=== PATIENT | female | born 1995 | race Caucasian/White ===

== ENCOUNTER 2017-09-14 10:28 | Observation (INO) ==
--- NOTE | 2017-09-14 11:56 | Emergency Department Note ---
Disposition Clinical Impression: Gait disturbance, Speech abnormality, Obesity, Headache, Delayed emotional development Disposition: Admitted As Inpatient General Adult HPI - General Chief complaint: ED General Medical Stated complaint: slurred speech/dizziness Time Seen by Provider: 09/14/17 11:37 Source: patient Limitations: no limitations - History of Present Illness HPI Narrative: 22-year-old female with a history of late emotional development and psychiatric illness reports emergency department with her mother there is concern for a change in speech pattern. Patient has a history of bipolar disorder and has been very aggressive regarding her mood. The mother reports that the change in speech pattern occurred with the change in mood. He mother also reports that the patient is unable to walk normally. She fell down once but did not get injured. There is no history of recent seizure. The patient has been feeling ill for a few days and felt very weak. There is no history of unilateral arm weakness or numbness or varsha slurred speech, there is no history of facial drooping. The patient complains of a headache. There is no history of rash or sore throat or runny nose. There is no history of acute chest pain shortness of breath or cough unless associated with feeling anxious, the patient occasionally develops chest pain. There is no history of active chest pain. There is no history of trauma. No vomiting diarrhea or acute abdominal pain. There is no history of back pain or syncope. There is no history of fever. No varsha confusion but the mother reports she cannot understand the patient's speech as well as usual. The patient had a recent URI which has resolved. The patient has not had anything to eat since yesterday and describes general weakness. No leg swelling. No palpitations reported. There is no history of drug overdose or intentional ingestion of toxic substances or self-induced injury. Pain Scale: 3 - Related Data Home Medications Medication Instructions Recorded Confirmed ALPRAZolam [Xanax 1 MG Tablet] 1 mg PO TID 09/14/17 09/14/17 Buspirone HCl [Buspar] 15 mg PO TID 09/14/17 09/14/17 Ferrous Sulfate [Iron] 325 mg PO DAILY 09/14/17 09/14/17 Fluticasone Propionate Nasal 2 spr NS DAILY 09/14/17 09/14/17 [Flonase] Norethindrone-Ethinyl Estrad 1 tab PO DAILY 09/14/17 09/14/17 [Nortrel 7-7-7-28 Tablet] Omeprazole [PriLOSEC] 20 mg PO BIDAC 09/14/17 09/14/17 Topiramate [Topamax] 50 mg PO DAILY 09/14/17 09/14/17 lamoTRIgine [Lamictal] 100 mg PO DAILY 09/14/17 09/14/17 Allergies Allergy/AdvReac Type Severity Reaction Status Date / Time No Known Allergies Allergy Verified 09/14/17 14:33 All systems ED: reviewed and negative except as stated. Past Medical History - Past Medical History Medical history: Reports: no medical history, GERD Psychiatric history: Reports: anxiety, ADHD, bipolar, depression - Social History Smoking Status: Never smoker Smokeless Tobacco Status: No Alcohol use: Reports: none Drug use: Reports: none Physical Exam - General Limitations: no limitations, other (The patient is able to sit up and communicate without difficulty, her speech is slow but fully intelligible on my assessment.) General appearance: alert, in no apparent distress, obese - Head Head exam: atraumatic, normocephalic, normal inspection - Eye Eye exam: Present: normal appearance, PERRL, EOMI. Absent: scleral icterus, conjunctival injection, miosis, mydriasis - ENT ENT exam: normal exam, normal oropharynx, mucous membranes moist, TM's normal bilaterally, normal external ear exam - Neck Neck exam: Present: normal inspection, full ROM, trachea midline. Absent: meningismus - Chest Chest inspection: Present: symmetric chest wall rise. Absent: tenderness - Respiratory Respiratory exam: Present: normal lung sounds bilaterally. Absent: respiratory distress, prolonged expiratory phase - Cardiovascular Cardiovascular exam: Present: regular rate, normal rhythm, normal heart sounds - Abdominal Exam Abdominal exam: Present: soft, Non-Tender, normal bowel sounds. Absent: tenderness, distention, guarding, rebound, rigidity - Extremities Exam Extremities exam: Present: normal inspection, full ROM, normal capillary refill. Absent: tenderness, pedal edema, joint swelling, calf tenderness - Expanded Lower Extremity Exam Lower leg exam: Absent: Homans' sign Neurovascular/Tendon exam: Present: normal capillary refill. Absent: motor deficit, sensory deficit, tendon deficit, extremity cold to touch, pallor - Back Exam Back exam: Present: normal inspection, full ROM, CVA tenderness (R). Absent: tenderness, CVA tenderness (L), vertebral tenderness - Neurological Exam Neurological exam: Present: alert, oriented X3, CN II-XII intact. Absent: motor sensory deficit - Psychiatric Psychiatric exam: Present: normal affect, normal mood - Skin Skin exam: Present: warm, dry, intact, normal color. Absent: rash, cyanosis, diaphoresis, erythema, pallor, mottled Course Vital Signs Temperature 97.7 F 09/14/17 10:29 Pulse Rate 98 09/14/17 10:29 Respiratory Rate 18 09/14/17 10:29 Blood Pressure 123/84 09/14/17 10:29 O2 Sat by Pulse Oximetry 99 09/14/17 10:29 Temperature 97.7 F 09/14/17 10:29 Pulse Rate 88 09/14/17 14:27 Respiratory Rate 18 09/14/17 14:27 Blood Pressure 109/76 09/14/17 14:27 O2 Sat by Pulse Oximetry 98 09/14/17 14:27 Oxygen Delivery Oxygen Delivery Room Air Medical Decision Making - MDM Narrative Medical decision making narrative: A medical records auditor and I tried to have the patient ambulate in the ED, she seemed to lean side to side and could not hold her balance well. The patient's mother reports this is highly abnormal for her. On exam the patient's neck is not rigid, she does describe a headache however there is no mass of trauma. There is no rash or fever, the patient's white count is normal. CRP minimally elevated. The patient's mother reports her speech pattern is improving but her gait is not. Based on the patient's apparent change in ambulation and speech pattern, as well as concerns for headache, I consult with the neurologist Dr. Sandoval, we both felt it would be appropriate to admit the patient the hospital for observation and further testing including potential MRI and lumbar puncture. The patient has a younger female with apparent neurologic disturbances, multiple sclerosis is in the differential, meningitis is also a consideration. The mother is highly favor admission, she does not feel the patient is safe to go home based on her change in gait and speech pattern. The patient does have psychiatric comorbidities, but the mother is very aware of her usual psychiatric disturbance reports the neurologic changes seem to be new. I consulted the hospitalist on-call who has accepted the patient to their care. A diagnostic LP has been ordered, Staff has been noticed and are available for this procedure. - Lab Data Lab results reviewed: Yes I reviewed the patient's lab results. Result diagrams: 09/14/17 12:13 09/14/17 12:13 Lab Results 09/14/17 09/14/17 09/14/17 Range/Units 12:13 12:13 12:13 WBC 8.2 (4.3-11.1) K/mcL RBC 4.46 (3.82-4.97) M/mcL Hgb 12.1 (11.5-15.4) g/dL Hct 38.1 (35.3-44.9) % MCV 85.4 (83.0-100.0) fL MCH 27.1 L (28.0-33.3) pg MCHC 31.8 (31.6-35.5) g/dL RDW 13.5 (11.5-14.5) % Plt Count 368 (140-400) K/mcL MPV 9.9 (9.4-12.4) fL Immature Gran % 0.4 (0-4) % Seg Neutrophils % 70.4 % Lymphocytes % 24.8 % Monocytes % 4.1 % Eosinophils % 0.2 % Basophils % 0.1 % Neutrophils # 5.8 (1.6-8.9) K/mcL Lymphocytes # 2.0 (0.6-4.6) K/mcL Monocytes # 0.3 (0.0-1.3) K/mcL Eosinophils # 0.0 (0.0-0.6) K/mcL Basophils # 0.0 (0.0-0.2) K/mcL Sodium (136-145) mEq/L Potassium (3.5-4.5) mEq/L Chloride (98-109) mEq/L Carbon Dioxide (19-29) mEq/L BUN (7-20) mg/dL Creatinine (0.57-1.11) mg/dL Est GFR ( Amer) (> 60) Est GFR (Non-Af Amer) (> 60) BUN/Creatinine Ratio (6-26) Glucose (70-99) mg/dL Calculated Osmolality (280-300) Lactic Acid 1.1 (0.5-2.2) mmol/L Calcium (8.6-10.8) mg/dL Phosphorus (2.3-4.7) mg/dL Magnesium (1.7-2.2) mg/dL Total Bilirubin (0.2-1.2) mg/dL Direct Bilirubin (0.0-0.5) mg/dL Indirect Bilirubin (0.0-1.2) mg/dL AST (5-34) Units/L ALT (0-55) Units/L Alkaline Phosphatase (38-126) Units/L Troponin I 0.00 (0-0.03) ng/mL C-Reactive Protein (Less than 5) mg/L Serum Total Protein (6.0-8.3) g/dL Albumin (3.5-5.0) g/dL Globulin (2.4-3.5) g/dL Albumin/Globulin Ratio (1.1-2.2) Lipase (8-78) Units/L TSH (0.350-4.840) mcIU/mL Serum , Qual (Negative) Urine Color (Yellow) Urine Clarity (Clear) Urine pH (5.0-8.0) pH Units Ur Specific [place] (1.010-1.025) Urine Protein (Neg-Trace) mg/dL Urine Glucose (UA) (Normal) mg/dL Urine Ketones (Negative) mg/dL Urine Blood (Negative) Urine Nitrite (Negative) Urine Bilirubin (Negative) Urine Urobilinogen (Normal) mg/dL Ur Leukocyte Esterase (Negative) Ur Culture Indicated? (NO) Salicylates (15-30) mg/dL Urine Opiates Screen (Ipyphj=539) ng/mL Acetaminophen (10-30) mcg/mL Ur Barbiturates Screen (Nmtdyq=847) ng/mL Ur Phencyclidine Scrn (Cutoff=25) ng/mL Ur Amphetamines Screen (Aftjwc=5674) ng/mL U Benzodiazepines Scrn (Hxoxtv=908) ng/mL Urine Cocaine Screen (Cutoff= 300) ng/mL U Marijuana (THC) Screen (Cutoff = 50) ng/mL Ethyl Alcohol (0-10) mg/dL 09/14/17 09/14/17 09/14/17 Range/Units 12:13 12:13 12:35 WBC (4.3-11.1) K/mcL RBC (3.82-4.97) M/mcL Hgb (11.5-15.4) g/dL Hct (35.3-44.9) % MCV (83.0-100.0) fL MCH (28.0-33.3) pg MCHC (31.6-35.5) g/dL RDW (11.5-14.5) % Plt Count (140-400) K/mcL MPV (9.4-12.4) fL Immature Gran % (0-4) % Seg Neutrophils % % Lymphocytes % % Monocytes % % Eosinophils % % Basophils % % Neutrophils # (1.6-8.9) K/mcL Lymphocytes # (0.6-4.6) K/mcL Monocytes # (0.0-1.3) K/mcL Eosinophils # (0.0-0.6) K/mcL Basophils # (0.0-0.2) K/mcL Sodium 140 (136-145) mEq/L Potassium 3.8 (3.5-4.5) mEq/L Chloride 107 (98-109) mEq/L Carbon Dioxide 23 (19-29) mEq/L BUN 7 (7-20) mg/dL Creatinine 0.74 (0.57-1.11) mg/dL Est GFR ( Amer) > 60 (> 60) Est GFR (Non-Af Amer) > 60 (> 60) BUN/Creatinine Ratio 9 (6-26) Glucose 99 (70-99) mg/dL Calculated Osmolality 288 (280-300) Lactic Acid (0.5-2.2) mmol/L Calcium 9.4 (8.6-10.8) mg/dL Phosphorus 3.3 (2.3-4.7) mg/dL Magnesium 2.5 H (1.7-2.2) mg/dL Total Bilirubin 0.3 (0.2-1.2) mg/dL Direct Bilirubin 0.2 (0.0-0.5) mg/dL Indirect Bilirubin 0.1 (0.0-1.2) mg/dL AST 14 (5-34) Units/L ALT 16 (0-55) Units/L Alkaline Phosphatase 88 (38-126) Units/L Troponin I (0-0.03) ng/mL C-Reactive Protein 25 H (Less than 5) mg/L Serum Total Protein 7.8 (6.0-8.3) g/dL Albumin 3.5 (3.5-5.0) g/dL Globulin 4.3 H (2.4-3.5) g/dL Albumin/Globulin Ratio 0.8 L (1.1-2.2) Lipase 24 (8-78) Units/L TSH 0.815 (0.350-4.840) mcIU/mL Serum , Qual Negative (Negative) Urine Color Yellow (Yellow) Urine Clarity Clear (Clear) Urine pH 6.0 (5.0-8.0) pH Units Ur Specific [place] 1.011 (1.010-1.025) Urine Protein Negative (Neg-Trace) mg/dL Urine Glucose (UA) Normal (Normal) mg/dL Urine Ketones Negative (Negative) mg/dL Urine Blood Negative (Negative) Urine Nitrite Negative (Negative) Urine Bilirubin Negative (Negative) Urine Urobilinogen Normal (Normal) mg/dL Ur Leukocyte Esterase Negative (Negative) Ur Culture Indicated? NO (NO) Salicylates < 5.0 L (15-30) mg/dL Urine Opiates Screen (Kdesbf=238) ng/mL Acetaminophen < 1.0 L (10-30) mcg/mL Ur Barbiturates Screen (Tbdfjt=519) ng/mL Ur Phencyclidine Scrn (Cutoff=25) ng/mL Ur Amphetamines Screen (Xrzuyx=7466) ng/mL U Benzodiazepines Scrn (Stqodq=840) ng/mL Urine Cocaine Screen (Cutoff= 300) ng/mL U Marijuana (THC) Screen (Cutoff = 50) ng/mL Ethyl Alcohol < 10 (0-10) mg/dL 09/14/17 Range/Units 12:35 WBC (4.3-11.1) K/mcL RBC (3.82-4.97) M/mcL Hgb (11.5-15.4) g/dL Hct (35.3-44.9) % MCV (83.0-100.0) fL MCH (28.0-33.3) pg MCHC (31.6-35.5) g/dL RDW (11.5-14.5) % Plt Count (140-400) K/mcL MPV (9.4-12.4) fL Immature Gran % (0-4) % Seg Neutrophils % % Lymphocytes % % Monocytes % % Eosinophils % % Basophils % % Neutrophils # (1.6-8.9) K/mcL Lymphocytes # (0.6-4.6) K/mcL Monocytes # (0.0-1.3) K/mcL Eosinophils # (0.0-0.6) K/mcL Basophils # (0.0-0.2) K/mcL Sodium (136-145) mEq/L Potassium (3.5-4.5) mEq/L Chloride (98-109) mEq/L Carbon Dioxide (19-29) mEq/L BUN (7-20) mg/dL Creatinine (0.57-1.11) mg/dL Est GFR ( Amer) (> 60) Est GFR (Non-Af Amer) (> 60) BUN/Creatinine Ratio (6-26) Glucose (70-99) mg/dL Calculated Osmolality (280-300) Lactic Acid (0.5-2.2) mmol/L Calcium (8.6-10.8) mg/dL Phosphorus (2.3-4.7) mg/dL Magnesium (1.7-2.2) mg/dL Total Bilirubin (0.2-1.2) mg/dL Direct Bilirubin (0.0-0.5) mg/dL Indirect Bilirubin (0.0-1.2) mg/dL AST (5-34) Units/L ALT (0-55) Units/L Alkaline Phosphatase (38-126) Units/L Troponin I (0-0.03) ng/mL C-Reactive Protein (Less than 5) mg/L Serum Total Protein (6.0-8.3) g/dL Albumin (3.5-5.0) g/dL Globulin (2.4-3.5) g/dL Albumin/Globulin Ratio (1.1-2.2) Lipase (8-78) Units/L TSH (0.350-4.840) mcIU/mL Serum , Qual (Negative) Urine Color (Yellow) Urine Clarity (Clear) Urine pH (5.0-8.0) pH Units Ur Specific [place] (1.010-1.025) Urine Protein (Neg-Trace) mg/dL Urine Glucose (UA) (Normal) mg/dL Urine Ketones (Negative) mg/dL Urine Blood (Negative) Urine Nitrite (Negative) Urine Bilirubin (Negative) Urine Urobilinogen (Normal) mg/dL Ur Leukocyte Esterase (Negative) Ur Culture Indicated? (NO) Salicylates (15-30) mg/dL Urine Opiates Screen Negative (Fjqxgn=856) ng/mL Acetaminophen (10-30) mcg/mL Ur Barbiturates Screen Negative (Iplkls=076) ng/mL Ur Phencyclidine Scrn Negative (Cutoff=25) ng/mL Ur Amphetamines Screen Negative (Xpjjfb=0896) ng/mL U Benzodiazepines Scrn Positive H (Raobvm=071) ng/mL Urine Cocaine Screen Negative (Cutoff= 300) ng/mL U Marijuana (THC) Screen Negative (Cutoff = 50) ng/mL Ethyl Alcohol (0-10) mg/dL - Radiology Data Radiology results reviewed: Yes I reviewed the patient's radiology results.
[2017-09-14 12:28] LABS: Basophils % 0.1 %; Eosinophils % 0.2 %; Hematocrit 38.1 % (35.3-44.9); Hemoglobin 12.1 g/dL (11.5-15.4); Immature Granulocytes % 0.4 % (0-4); Lymphocytes % 24.8 %; Mean Corpuscular HGB Conc 31.8 g/dL (31.6-35.5); Mean Corpuscular Hemoglobin 27.1 pg (28.0-33.3); Mean Corpuscular Volume 85.4 fL (83.0-100.0); Mean Platelet Volume 9.9 fL (9.4-12.4); Monocytes # 0.3 K/mcL (0.0-1.3); Monocytes % 4.1 %; Neutrophils # 5.8 K/mcL (1.6-8.9); Platelet Count 368 K/mcL (140-400); Red Blood Count 4.46 M/mcL (3.82-4.97); Red Cell Distribution Width 13.5 % (11.5-14.5); Segmented Neutrophils % 70.4 %
[2017-09-14 12:44] LABS: Alanine Aminotransferase 16 Units/L (0-55); Albumin 3.5 g/dL (3.5-5.0); Albumin/Globulin Ratio 0.8 (1.1-2.2); Alkaline Phosphatase 88 Units/L (38-126); Aspartate Amino Transferase 14 Units/L (5-34); BUN/Creatinine Ratio 9 (6-26); Bilirubin,Direct 0.2 mg/dL (0.0-0.5); Bilirubin,Indirect 0.1 mg/dL (0.0-1.2); Bilirubin,Total 0.3 mg/dL (0.2-1.2); Blood Urea Nitrogen 7 mg/dL (7-20); C-Reactive Protein 25 mg/L (Less than 5); Calcium 9.4 mg/dL (8.6-10.8); Carbon Dioxide 23 mEq/L (19-29); Chloride 107 mEq/L (98-109); Globulin 4.3 g/dL (2.4-3.5); Glucose 99 mg/dL (70-99); Lipase 24 Units/L (8-78); Magnesium 2.5 mg/dL (1.7-2.2); Osmolality,Calculated 288 (280-300); Phosphorous 3.3 mg/dL (2.3-4.7); Potassium 3.8 mEq/L (3.5-4.5); Sodium 140 mEq/L (136-145); Total Protein 7.8 g/dL (6.0-8.3); eGFR For African Americans > 60 (> 60); eGFR For Non-African Americans > 60 (> 60)
[2017-09-14 12:50] LABS: Amphetamine Screen,Urine Negative ng/mL (Cutoff=1000); Barbiturate Screen,Urine Negative ng/mL (Cutoff=200); Benzodiazepines Screen,Urine Positive ng/mL (Cutoff=200); Bilirubin,Urine Negative (Negative); Blood,Urine Negative (Negative); Cannabinoid Screen,Urine Negative ng/mL (Cutoff = 50); Clarity,Urine Clear (Clear); Cocaine Screen,Urine Negative ng/mL (Cutoff= 300); Color,Urine Yellow (Yellow); Glucose,Urine (UA) Normal (Normal); Ketones,Urine Negative (Negative); Leukocyte Esterase,Urine Negative (Negative); Nitrite,Urine Negative (Negative); Opiate Screen,Urine Negative ng/mL (Cutoff=300); Phencyclidine Screen,Urine Negative ng/mL (Cutoff=25); Protein,Urine Negative (Neg-Trace); Specific Gravity,Urine 1.011 (1.010-1.025); Urobilinogen,Urine Normal (Normal)
[2017-09-14 12:56] LABS: Acetaminophen < 1.0 mcg/mL (10-30); Ethanol < 10 mg/dL (0-10); Salicylate < 5.0 mg/dL (15-30)
[2017-09-14 13:16] LABS: Thyroid Stimulating Hormone 0.815 mcIU/mL (0.350-4.840)
[2017-09-14] MEDS ORDERED: Naloxone 0.4 MG/ML INJ IVP PRN (15:29)
--- NOTE | 2017-09-14 15:43 | Electrocardiograph Report ---
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
--- NOTE | 2017-09-14 16:15 | Internal Med History&Physical ---
<Dexter Lopez - Last Filed: 09/14/17 17:00> Date of Encounter: 09/14/17 Time of Encounter: 14:30 Assessment and Plan (1) Gait disturbance Current visit: Yes Status: Acute Pt. and mother report gait disturbance since Thursday. Pt. is able to ambulate but does so with shuffle. Mother states this is not pts. normal gait. CT of the head shows no acute intracranial abnormality. MRI of head/brain w/o contrast ordered. Lumbar puncture ordered to r/o viral meningitis. Pt. is currently afebrile and asymptomatic for infection. Will monitor pt. and f/u labs. PT/OT consults ordered to assess pts. ambulation strength and stability. Pt. is at moderate risk for further morbidity based on current hx and duration of sx. Observation. (2) Dizziness Current visit: Yes Status: Acute Pt. reports acute dizziness accompanied by headache and blurry vision. CT of the head shows no acute intracranial abnormality. MRI of the head/brain ordered w/o contrast. PT/OT consults ordered for ambulation safety assessment. Falls/ safety precautions. (3) Speech abnormality Current visit: Yes Status: Acute Pts. mother reports slurred speech in pt. since Thursday. Mother states that the pt. is developmentally delayed and that it is sometimes difficult to see changes but reports that this is not her normal speech. CT of the head today showed no acute intracranial abnormality. MRI of the head/brain w/o contrast ordered. Speech therapy consult ordered. Dysphagia screen ordered. NPO for now until dysphagia screen passed. Qualifiers: Speech disturbance type: slurred speech Qualified Code(s): R47.81 - Slurred speech (4) Headache Current visit: Yes Status: Acute Acute headache for three days. Pt. has familial hx of migraines (mother). Concern is for possible viral meningitis. Lumbar puncture ordered. Acetaminophen 650 mg Q6 for pain management. Qualifiers: Headache type: unspecified Headache chronicity pattern: acute headache Intractability: not intractable Qualified Code(s): R51 - Headache (5) Anxiety and depression Current visit: Yes Status: Chronic Hx of chronic anxiety, bipolar depression, and ADHD. Will continue patient's Xanax, Buspar, and Lamictal. (6) GERD (gastroesophageal reflux disease) Current visit: Yes Status: Chronic Hx of chronic GERD and peptic ulcer. Zofran IVP Q PRN and will continue pts. Prilosec. Qualifiers: Esophagitis presence: esophagitis presence not specified Qualified Code(s) : K21.9 - Gastro-esophageal reflux disease without esophagitis (7) Delayed emotional development Current visit: Yes Status: Chronic Hx of developmental delay. Mother reports mood swings and periods of argumentative behavior. Will continue patient's Xanax, Lamictal, and BuSpar. (8) DVT prophylaxis Current visit: Yes Status: Acute Bilateral SCDs on pts. LEs for DVT prophylaxis. Pharmacologic prophylaxis contraindicated due to lumbar puncture Internal Medicine - H&P: HPI Chief complaint: Slurred speech/Dizziness Admitted From: Emergency Dept Plans for Post Hospital Care: Home History of present illness: Ms. Velez is a 22 year old female with medical hx of GERD and peptic ulcer presents from the ED with chief complaint of slurred speech, abnormal gait, dizziness, headache, and nausea for the past 3 days. Patient also reports blurry vision for the past 3 days and states that she fell out of bed unintentionally on Thursday but denies hitting her head. Pts. mother states that the pt. is developmentally delayed and has fits of anger which she reports the patient had on Thursday evening while at the movies. Pts. mother states the pt. was in a very bad mood, began acting out, became argumentative and combative, and mouthy to her. She states this has happened before. Pt. currently takes, Xanax, Buspar, and Lamictal for anxiety, ADHD, and bipolar depression. Pt. states that it feels like the bed is moving when she is laying in it. Pt. denies recent illness, fever, chills, vomiting, unusual bleeding, abdominal pain , diarrhea, constipation, chest pain, SOB, palpitations, pre-syncope, or syncope. Past Med Surg Social Fam HX - Past Medical History Source: patient, old records reviewed, obtained from family Medical history: GERD Psychiatric history: anxiety, ADHD, bipolar, depression - Social History Smoking Status: Never smoker Smokeless Tobacco Status: No Alcohol use: none Drug use: none Current living situation: Home, With Family Activity Level: Independent ambulation Recent Out of Country Travel Within the Last 8 Weeks: No Exposure or Possible Exposure to Illness During Travel: No Internal Medicine - H&P: Meds ALPRAZolam [Xanax 1 MG Tablet] 1 mg PO TID 09/14/17 [History] Buspirone HCl [Buspar] 15 mg PO TID 09/14/17 [History] Ferrous Sulfate [Iron] 325 mg PO DAILY 09/14/17 [History] Fluticasone Propionate Nasal [Flonase] 2 spr NS DAILY 09/14/17 [History] Norethindrone-Ethinyl Estrad [Nortrel 7-7-7-28 Tablet] 1 tab PO DAILY 09/14/17 [ History] Omeprazole [PriLOSEC] 20 mg PO BIDAC 09/14/17 [History] Topiramate [Topamax] 50 mg PO DAILY 09/14/17 [History] lamoTRIgine [Lamictal] 100 mg PO DAILY 09/14/17 [History] 3 Allergy/AdvReac Type Severity Reaction Status Date / Time No Known Allergies Allergy Verified 09/14/17 14:33 All Systems PM: A 10-system review of systems was performed and is negative for pertinent findings except as documented above in the HPI. - Constitutional Constitutional: no chills, no fever(s), no night sweats - EENT Eyes: as per HPI, blurry vision, change in vision, no discharge, no pain, no photophobia Ears: no ear discharge, no ear pain, no tinnitus Nose, mouth and throat: no dysphagia, no nasal discharge, no neck pain, no sore throat - Breasts Breasts: as per HPI - Cardiovascular Cardiovascular ROS IM: no chest pain, no diaphoresis, no dyspnea, no lightheadedness, no palpitations, no syncope - Respiratory Respiratory: no cough, no dyspnea, no wheezing, no excessive phlegm production - Gastrointestinal Gastrointestinal: as per HPI, nausea, no abdominal pain, no diarrhea, no hematemesis, no hematochezia, no melena, no vomiting - Genitourinary Genitourinary: no change in urinary stream, no dysuria, no flank pain, no hematuria Menstruation: as per HPI - Musculoskeletal Musculoskeletal ROS IM: no numbness, no tingling - Integumentary Integumentary IM: no rash, no unusual bruising - Neurological Neurological ROS: no confusion, no convulsions, no focal weakness, no numbness, no tingling, no tremor(s) - Psychiatric Psychiatric: as per HPI, anxiety, depression, other (ADHD) - Endocrine Endocrine IM: as per HPI - Hematologic/Lymphatic Hematologic/Lymphatic: no easy bruising - Allergic/Immunologic Allergic/Immunologic: as per HPI - Constitutional Vitals: Temp Pulse Resp BP Pulse Ox 97.7 F 88 16 110/78 98 09/14/17 10:29 09/14/17 14:27 09/14/17 15:08 09/14/17 15:08 09/14/17 14:27 General appearance: Present: cooperative, A&O X 3, pleasant, no acute distress, obese, answers questions appropriately - Head Head exam: Present: atraumatic, normal inspection, normocephalic - Eye Eye exam: Present: PERRL, conjuntiva pink, sclera anicteric Pupils: Present: PERRL - ENT ENT exam: Present: normal exam, normal external ear exam - Neck Neck exam general surgery: Present: normal inspection, supple, trachea midline. Absent: lymphadenopathy - Respiratory Respiratory exam: Present: CTAB. Absent: accessory muscle use, rales, rhonchi, wheezes - Cardiovascular Cardiovascular exam: Present: RRR, +S1, +S2. Absent: diastolic murmur, gallop, rubs, systolic murmur - GI/Abdominal GI/Abdominal exam: Present: normal bowel sounds, soft, no peritoneal signs. Absent: distended, tenderness - Rectal Rectal exam: Present: deferred - Additional comments: exam deferred. - Extremities Exam Extremities exam: Present: warm, radial pulses palpable and symmetrical. Absent : calf tenderness, cyanotic, pedal edema - Back Exam Back exam: Present: rash noted (Pts. mother states she always has this rash. Has the appearance of mild acne.) - Neurological Exam Neurological exam: Present: CN II-XII intact, oriented X3, no focal deficits. Absent: pronater drift, facial droop, speech deficit - Psychiatric Psychiatric exam: Present: normal affect, normal mood - Skin Skin exam: Present: rash (Rash on back) Internal Med - H&P Results - Labs CBC & Chem 7: 09/14/17 12:13 09/14/17 12:13 - Diagnostic Studies Chest x-ray Additional comments: Impressions Chest X-Ray 09/14/17 11:48 IMPRESSION: No active cardiopulmonary disease D/ / Kd Nguyen MD / Kd Nguyen MD Interpreting Provider: Kd Nguyen MD CT scan - head Additional comments: Impressions Head CT 09/14/17 11:48 IMPRESSION: No acute intracranial abnormality. D/ / Campbell Cooper MD / Campbell Cooper MD Interpreting Provider: Campbell Cooper MD <Xavi Hendrix - Last Filed: 09/14/17 18:28> Date of Encounter: 09/14/17 Time of Encounter: 17:00 - Constitutional Constitutional: no chills, no fever(s), no night sweats - EENT Nose, mouth and throat: no lip swelling, no mouth lesions, no mouth pain - Constitutional Vitals: Temp Pulse Resp BP Pulse Ox 98.2 F 102 16 114/75 98 09/14/17 17:41 09/14/17 17:41 09/14/17 17:41 09/14/17 17:41 09/14/17 17:41 General appearance: Present: cooperative, A&O X 3, pleasant, no acute distress, answers questions appropriately Exam: I do not appreciate any slurred speech/dysarthria -- speech is intelligible and clear on my assessment - Head Head exam: Present: normal inspection - Eye Eye exam: Present: EOMI, PERRL. Absent: scleral icterus Pupils: Present: normal accommodation - ENT ENT exam: Present: mucous membranes dry, normal exam, normal external ear exam, normal oropharynx Additional comments: no oral or gingival lesions/ulcers - Neck Neck exam general surgery: Present: full ROM, supple. Absent: lymphadenopathy, tenderness, nuchal rigidity, thyromegaly - Respiratory Respiratory exam: Present: CTAB - Cardiovascular Cardiovascular exam: Present: RRR, +S1, +S2 - GI/Abdominal GI/Abdominal exam: Present: soft. Absent: tenderness - Psychiatric Psychiatric exam: Present: normal affect, normal mood Internal Med - H&P Results - Labs CBC & Chem 7: 09/14/17 12:13 09/14/17 12:13 - Impressions ITS Impressions Lumbar Puncture Fluoroscopy 09/14/17 14:54 IMPRESSION: Successful fluoroscopic-guided lumbar puncture. D/ / 09/14/2017 17:50:02 Jacquelyn Grady MD / rodriguez Interpreting Provider: Jacquelyn Grady MD - Attending Attestation I discussed the patient AFOGNAK, PMH, ROS, lab data, and exam findings with Ruslan Lopez CNP. I then saw and examined patient independently as well. Patient's mother is not present at the time of my assessment. As I assessed patient, her speech is clear and crisp and I do not detect any dysarthria or speech difficulties. She just had her LP and is lying flat in bed. Her CSF studies do not suggest meningitis and her gram stain is negative. She denies any history of "cold sores" or oral herpes. Neurology has been consulted. I agree with MRI. Given her history, I am concerned about possible psychosomatic etiology for her symptoms. However, we will first proceed with work-up as detailed by Ruslan and await neurology guidance before we can consider psychosomatic causes. Other than my comments noted above and detailed exam findings, I agree with Ruslan's assessment and plan.
--- NOTE | 2017-09-14 16:57 | IR Procedure Note ---
Date of procedure: 09/14/17 Consent Obtained: Written consent Indications: headache Procedure Performed: LP Site/Technique: L3 Results/Findings: 12cc clear fluid removed and sent for labs Estimated blood loss (cc): 0 Complications: None; Tolerated procedure well Post Procedure Treatment Plan: dc to floor
[2017-09-14 17:12] LABS: Red Blood Cell,CSF < 0.002 M/mcL
[2017-09-14] MEDS: Ondansetron 4 MG/2 ML VIAL IVP PRN (17:18)
[2017-09-14 17:20] LABS: Appearance,CSF Clear (Clear)
[2017-09-14 17:24] LABS: Glucose,CSF 59 mg/dL (40-70); Total Protein,CSF 15 mg/dL (15-45)
[2017-09-14] MEDS ORDERED: Ketorolac 15 MG/ML VIAL IVP PRN (21:37)
[2017-09-14] MEDS: ALPRAZolam 1 MG TABLET PO SCH (21:54)
[2017-09-15 03:50] LABS: Basophils % 0.5 %; Eosinophils # 0.1 K/mcL (0.0-0.6); Eosinophils % 0.8 %; Hematocrit 34.1 % (35.3-44.9); Hemoglobin 10.9 g/dL (11.5-15.4); Immature Granulocytes % 0.3 % (0-4); Lymphocytes # 2.4 K/mcL (0.6-4.6); Lymphocytes % 36.6 %; Mean Corpuscular Hemoglobin 27.6 pg (28.0-33.3); Mean Corpuscular Volume 86.3 fL (83.0-100.0); Mean Platelet Volume 10.3 fL (9.4-12.4); Monocytes # 0.4 K/mcL (0.0-1.3); Monocytes % 5.6 %; Neutrophils # 3.7 K/mcL (1.6-8.9); Platelet Count 310 K/mcL (140-400); Red Blood Count 3.95 M/mcL (3.82-4.97); Red Cell Distribution Width 13.9 % (11.5-14.5); Segmented Neutrophils % 56.2 %
[2017-09-15] MEDS: Ondansetron 4 MG/2 ML VIAL IVP PRN (04:04)
[2017-09-15 04:06] LABS: Alanine Aminotransferase 14 Units/L (0-55); Albumin 3.1 g/dL (3.5-5.0); Albumin/Globulin Ratio 0.8 (1.1-2.2); Alkaline Phosphatase 74 Units/L (38-126); Aspartate Amino Transferase 11 Units/L (5-34); BUN/Creatinine Ratio 9 (6-26); Bilirubin,Total 0.3 mg/dL (0.2-1.2); Blood Urea Nitrogen 7 mg/dL (7-20); Calcium 8.9 mg/dL (8.6-10.8); Carbon Dioxide 24 mEq/L (19-29); Chloride 110 mEq/L (98-109); Chol/HDL Ratio 4.4 (0-4.9); Cholesterol 166 mg/dL (< 200); Globulin 3.9 g/dL (2.4-3.5); Glucose 103 mg/dL (70-99); HDL Cholesterol 38 mg/dL (40-59); LDL Cholesterol,Calculated 107 mg/dL (0-99); Magnesium 2.2 mg/dL (1.7-2.2); Osmolality,Calculated 292 (280-300); Potassium 3.9 mEq/L (3.5-4.5); Sodium 142 mEq/L (136-145); Triglycerides 106 mg/dL (< 150); eGFR For African Americans > 60 (> 60); eGFR For Non-African Americans > 60 (> 60)
[2017-09-15] MEDS: Acetaminophen 325 MG TABLET PO PRN ×2 (04:57→15:00)
[2017-09-15] MEDS: lamoTRIgine 100 MG TABLET PO SCH (08:23)
[2017-09-15] MEDS: ALPRAZolam 1 MG TABLET PO SCH ×3 (08:23→21:33)
[2017-09-15] MEDS: Topiramate 25 MG TABLET PO SCH (08:23)
[2017-09-15] MEDS: Fluticasone Propionate Nasal 50 MCG/SPRAY BOTTLE NS SCH (08:24)
[2017-09-15] MEDS: 0.9 % Sodium Chloride 1,000 ML IVC SCH ×2 (11:08→21:33)
--- NOTE | 2017-09-15 14:59 | Internal Med Progress Note ---
Date of Encounter: 09/15/17 Time of Encounter: 09:05 - Assessment and plan (1) Headache Current Visit: Yes Status: Chronic Assessment and plan: Patient reports headache for 3 days. Worse for the last 2 days. Patient has personal history of migraines and has been taking Topamax. She also has a familial history of migraines. Patient started her menses today, she is unable to answer whether there is any correlation between her headaches and menses. Patient had a fluoroscopic guided LP was negative. Brain MRI negative for acute infarct, mass, or hemorrhage. She has been seen by neurology, I am awaiting the report and recommendations. Mom reports that speech and gait have both returned to normal. Patient states that she still has headache, however it is better than it was at its inception. Mom reports the patient has a history of sensory processing disorder. Mom states that patient reports that she is having pain, pain must be severe. Patient reports that she is not feeling well enough to go home, will continue to monitor patient overnight. If she is improved she will most likely discharge in the morning. MRI brain with contrast ordered. Head CT 09/14/17 11:48 IMPRESSION: No acute intracranial abnormality. D/ / Campbell Cooper MD / Campbell Cooper MD Interpreting Provider: Campbell Cooper MD Lumbar Puncture Fluoroscopy 09/14/17 14:54 IMPRESSION: Successful fluoroscopic-guided lumbar puncture. D/ / 09/14/2017 17:50:02 Jacquelyn Grady MD / rodriguez Interpreting Provider: Jacquelyn Grady MD Brain MRI 09/14/17 16:00 IMPRESSION: Relative Increased signal in the hippocampal structures bilaterally on The T2 and FLAIR sequences. This is likely artifactual. If the patient's neurologic symptoms continue, consider MRI brain with contrast for follow-up No acute infarct, mass or hemorrhage. D/ / Ezequiel Mendez / Ezequiel Mendez Interpreting Provider: Ezequiel Mendez Qualifiers: Headache type: unspecified Headache chronicity pattern: acute headache Intractability: not intractable Qualified Code(s): R51 - Headache (2) Gait disturbance Current Visit: Yes Status: Resolved Assessment and plan: Patient and mother both report came disturbance for the last 3 days, with accompanied headache. They report the patient inability to shuffle and that this is abnormal for the patient. Imaging as above. Lumbar puncture as above. Mom reports that gait has returned to normal. The patient was evaluated by physical and occupational therapy. At this time there are no notes available to review. We will continue to monitor patient overnight, patient will most likely discharge tomorrow. (3) Speech abnormality Current Visit: Yes Status: Resolved Assessment and plan: Patient's mother reports that her speech was slurred for the last 3 days. This morning, she states his speech is return to baseline. Per mother, patient is developmentally delayed and is sometimes difficult to see the changes, but her speech was abnormal at the time. Imaging as above. Patient has dysphasia screen 2. Diet has been ordered. Speech therapy denies needs for the patient. Qualifiers: Speech disturbance type: slurred speech Qualified Code(s): R47.81 - Slurred speech (4) Obesity Current Visit: Yes Status: Acute Assessment and plan: Chronic. Lifestyle modifications. Qualifiers: Obesity type: unspecified obesity type Obesity classification: adult class 2 (BMI 35 - 39.9) Serious obesity comorbidity presence: without serious comorbidity Body mass index: BMI 39.0-39.9 Qualified Code(s): E66.9 - Obesity, unspecified; Z68.39 - Body mass index (BMI) 39.0-39.9, adult; Z68.39 - Body mass index (BMI) 39.0-39.9, adult (5) DVT prophylaxis Current Visit: Yes Status: Acute Assessment and plan: Pt ambulatory. - Time Spent With Patient less than 15 minutes - Subjective Interval history: Pt was seen and assessed at 0905 this a.m. Mom was at bs, she states that speech has returned to normal. Pt states that her menses started today, is unable to answer fully whether her chronic migraines and/or this headache have any correlation with her menses. She states that LANGE has improved since its inception. She reports nausea, but denies to primary RN. She denies abd pain, vomiting, dizziness, vision changes, unsteady gait, and speech has returned to her baseline. Waiting on report from neuro, pt most likely will discharge tomorrow. - Constitutional Vitals: Temp Pulse Resp BP Pulse Ox 97.6 F 85 16 98/67 98 09/15/17 11:46 09/15/17 11:46 09/15/17 11:46 09/15/17 11:46 09/15/17 11:46 General appearance: Present: cooperative, A&O X 3, pleasant, no acute distress, obese, answers questions appropriately - Head Head exam: Present: atraumatic, normal inspection, normocephalic - Eye Eye exam: Present: normal appearance, conjuntiva pink, sclera anicteric - ENT ENT exam: Present: mucous membranes dry, normal exam, normal external ear exam, normal oropharynx - Neck Neck exam general surgery: Present: normal inspection, supple, trachea midline. Absent: lymphadenopathy, tenderness - Respiratory Respiratory exam: Present: decreased breath sounds. Absent: accessory muscle use, chest wall tenderness, rales, rhonchi, wheezes Additional comments: poor inspiratory effort - Cardiovascular Cardiovascular exam: Present: RRR, +S1, +S2. Absent: diastolic murmur, gallop, rubs, systolic murmur - GI/Abdominal GI/Abdominal exam: Present: distended, normal bowel sounds, soft. Absent: hepatomegaly, tenderness - Extremities Exam Extremities exam: Present: normal capillary refill, normal inspection, warm, radial pulses palpable and symmetrical. Absent: calf tenderness, cyanotic, pedal edema, tenderness - Neurological Exam Neurological exam: Present: alert, oriented X3, no focal deficits, strengths equal and symetr throughout. Absent: altered, motor sensory deficit, facial droop, speech deficit - Skin Skin exam: Present: dry, intact, normal color, warm. Absent: rash Internal Medicine: Result - Labs CBC & Chem 7: 09/15/17 03:15 09/15/17 03:15 Labs: Short CBC 09/15/17 Range/Units 03:15 WBC 6.6 (4.3-11.1) K/mcL Hgb 10.9 L (11.5-15.4) g/dL Hct 34.1 L (35.3-44.9) % Plt Count 310 (140-400) K/mcL Neutrophils # 3.7 (1.6-8.9) K/mcL BMP 09/15/17 03:15 Sodium 142 Potassium 3.9 Chloride 110 H Carbon Dioxide 24 BUN 7 Creatinine 0.79 Glucose 103 H Calcium 8.9 Liver Function 09/15/17 Range/Units 03:15 Total Bilirubin 0.3 (0.2-1.2) mg/dL AST 11 (5-34) Units/L ALT 14 (0-55) Units/L Alkaline Phosphatase 74 (38-126) Units/L Albumin 3.1 L (3.5-5.0) g/dL - Impressions Impressions Lumbar Puncture Fluoroscopy 09/14/17 14:54 IMPRESSION: Successful fluoroscopic-guided lumbar puncture. D/ / 09/14/2017 17:50:02 Jacquelyn Grady MD / rodriguez Interpreting Provider: Jacquelyn Grady MD Brain MRI 09/14/17 16:00 IMPRESSION: Relative Increased signal in the hippocampal structures bilaterally on The T2 and FLAIR sequences. This is likely artifactual. If the patient's neurologic symptoms continue, consider MRI brain with contrast for follow-up No acute infarct, mass or hemorrhage. D/ / Ezequiel Mendez / Ezequiel Mendez Interpreting Provider: Ezequiel Mendez Consult Discharge Plan - Plan Referrals: Alysa Estrella, [employer] [Primary Care Provider] -
--- NOTE | 2017-09-15 16:09 | Neurology - Consult Note ---
Date of Encounter: 09/15/17 Time of Encounter: 08:25 Assessment and Plan (1) Gait disturbance Current Visit: Yes Status: Resolved This patient apparently has a history of mild developmental psychological delay along with a history of bipolar disorder and chronic migraines been admitted with difficulty with her gait and balance increasing and headache and without any focal findings on her neurological examination. So far no evidence of any PC MAINTENANCE TECHNICIAN infection and particularly her CSF has been negative I did not see any focal findings on her neurological examination to be suggestive of acute stroke or any other neurological abnormality. MRI of the brain was negative except as a concern that increasing that in the temporal lobe likely an artifactual in nature though at times could be seen in patient with herpes encephalitis but patient's symptoms history exam findings as well as CSF analysis does not support that. She is scheduled for repeat MRI with contrast will follow the result of it. Do not recommend any antibiotics on any antiviral agent at this time Suggest physical therapy evaluation for gait and balance. No sign of posterior circulation abnormality (2) Chronic migraine without aura Current Visit: Yes Status: Acute Patient has a history of chronic migraine headaches she has been on Topamax though prescribed by psychiatrist but likely. These headaches if she continued to have that perhaps it could be treated with by mouth Imitrex on scheduled NSAIDs. Although that has not the headache get worse we may give a dose of IV steroids with Solu-Medrol 60 mg. At the moment I do not think that she would require any IV medication Qualifiers: Status migrainosus presence: without status migrainosus Intractability: not intractable Qualified Code(s): G43.709 - Chronic migraine without aura, not intractable, without status migrainosus (3) Speech abnormality Current Visit: Yes Status: Resolved There was a concern that she may be having some slurred speech at the moment is been resolved I suspected was more behavioral in nature really doubt that it was a TIA or stroke. Suggest continuing the current medication that she has been on We will follow physical therapy recommendation Qualifiers: Speech disturbance type: slurred speech Qualified Code(s): R47.81 - Slurred speech (4) Delayed emotional development Current Visit: Yes Status: Chronic (5) Dizziness Current Visit: Yes Status: Acute History of Present Illness HPI: Ms. Velez is a 22 year old female with PMH of Mild developmental delay, admitted with chief complaint of slurred speech, abnormal gait, dizziness, headache, and nausea for the past 3 days. Patient also reports blurry vision for the past 3 days and states that she fell out of bed unintentionally on Thursday but denies hitting her head. Pts. mother states that the pt. is developmentally delayed and has fits of anger which she reports the patient had one, on Thursday evening while at the movies. Pts. mother states the pt. was in a very bad mood, began acting out, became argumentative and combative, and mouthy to her. Pt. currently takes, Xanax, Buspar, and Lamictal for anxiety, ADHD, and bipolar depression. pt is complaining of dizziness and headaches, feels like the bed is moving when she is laying in it. Pt. denies recent illness, fever, chills, vomiting, unusual bleeding, abdominal pain, diarrhea, constipation, chest pain, SOB, palpitations, or Seizures. Pt had LP earlier reported as negative, complaining of back pain and soreness Past Med Surg Social Fam HX - Past Medical History Medical history: GERD Psychiatric history: anxiety, ADHD, bipolar, depression - Social History Smoking Status: Never smoker Smokeless Tobacco Status: No Alcohol use: none Drug use: none - Family History Grandfather Hx Family Cardiac Disorders: Yes (HEART DISEASE.) Medications and Allergies ALPRAZolam [Xanax 1 MG Tablet] 1 mg PO TID 09/14/17 [History] Buspirone HCl [Buspar] 15 mg PO TID 09/14/17 [History] Ferrous Sulfate [Iron] 325 mg PO DAILY 09/14/17 [History] Fluticasone Propionate Nasal [Flonase] 2 spr NS DAILY 09/14/17 [History] Norethindrone-Ethinyl Estrad [Nortrel 7-7-7-28 Tablet] 1 tab PO DAILY 09/14/17 [ History] Omeprazole [PriLOSEC] 20 mg PO BIDAC 09/14/17 [History] Topiramate [Topamax] 50 mg PO DAILY 09/14/17 [History] lamoTRIgine [Lamictal] 100 mg PO DAILY 09/14/17 [History] 3 Allergy/AdvReac Type Severity Reaction Status Date / Time No Known Allergies Allergy Verified 09/14/17 14:33 All Systems: A 10-system review of systems was performed and is negative for pertinent findings except as documented above in the HPI. Physical Examination - Vital Signs Vital Signs: Initial Vital Signs Temp Pulse Resp BP Pulse Ox 97.7 F 98 18 123/84 99 09/14/17 10:29 09/14/17 10:29 09/14/17 10:29 09/14/17 10:29 09/14/17 10:29 - Constitutional General appearance: comfortable - Neurologic Sensorimotor examination: intact Detailed motor examination: grossly full strength in all extremities Motor examination - right side: 5/5: deltoids, biceps, triceps, wrist flexion, wrist extension, scanning coordinator, hip flexors, tibialis Anterior, quadriceps, toe extension (EHL), plantarflexion Motor examination - left side: 5/5: deltoids, biceps, triceps, wrist flexion, wrist extension, hip flexors, scanning coordinator, quadriceps, tibialis Anterior, toe extension (EHL), plantarflexion Detailed sensory examination: intact Reflexes: Biceps: 1+, Triceps: 1+, Brachioradialis: 1+, Patella: 1+, Achilles: 1 + Mental Status Examination: awake, alert, oriented to person, oriented to place, oriented to time, follows commands appropriately, answers questions appropriately Cranial nerve examination: PERRL, EOMI, visual obrien intact, corneal reflexes brisk symmetrically, sensory to face intact, mastication intact, no facial asymmetry is present, no dysarthria, hearing is intact symmetrically, soft palate elevates bilaterally upon phonation, gag reflex intact, flexes SCM and trapezius muscles symmetrically with full power, tongue protrudes midline, no atrophy or facial fasiculations present Cerebellar examination: no dysmetria Results - Laboratory Findings CBC and BMP: 09/15/17 03:15 09/15/17 03:15 Abnormal lab findings: Abnormal lab results Hgb 10.9 g/dL (11.5-15.4) L 09/15/17 03:15 Hct 34.1 % (35.3-44.9) L 09/15/17 03:15 MCH 27.6 pg (28.0-33.3) L 09/15/17 03:15 Chloride 110 mEq/L (98-109) H 09/15/17 03:15 Glucose 103 mg/dL (70-99) H 09/15/17 03:15 C-Reactive Protein 25 mg/L (Less than 5) H 09/14/17 12:13 Albumin 3.1 g/dL (3.5-5.0) L 09/15/17 03:15 Globulin 3.9 g/dL (2.4-3.5) H 09/15/17 03:15 Albumin/Globulin Ratio 0.8 (1.1-2.2) L 09/15/17 03:15 LDL Cholesterol, Calc 107 mg/dL (0-99) H 09/15/17 03:15 HDL Cholesterol 38 mg/dL (40-59) L 09/15/17 03:15 Salicylates < 5.0 mg/dL (15-30) L 09/14/17 12:13 Acetaminophen < 1.0 mcg/mL (10-30) L 09/14/17 12:13 U Benzodiazepines Scrn Positive ng/mL (Skamer=114) H 09/14/17 12:35 - Diagnostic Findings Additional findings: MRi of brain showed: Increased signal in the hippocampal structures bilaterally on The T2 and FLAIR sequences. This is likely artifactual. but suggested MRI brain with contrast for follow-up, No acute infarct, mass or hemorrhage. CSF is negative Consult Discharge Plan - Plan Referrals: Alysa Estrella, REGIONAL ACCOUNT MANAGER [Primary Care Provider] -
[2017-09-16] MEDS: Acetaminophen 325 MG TABLET PO PRN (03:09)
[2017-09-16 05:39] LABS: Basophils % 0.4 %; Eosinophils # 0.2 K/mcL (0.0-0.6); Eosinophils % 2.4 %; Hematocrit 35.8 % (35.3-44.9); Hemoglobin 10.8 g/dL (11.5-15.4); Immature Granulocytes % 0.3 % (0-4); Lymphocytes # 2.8 K/mcL (0.6-4.6); Lymphocytes % 37.4 %; Mean Corpuscular HGB Conc 30.2 g/dL (31.6-35.5); Mean Corpuscular Hemoglobin 26.9 pg (28.0-33.3); Mean Corpuscular Volume 89.1 fL (83.0-100.0); Mean Platelet Volume 10.4 fL (9.4-12.4); Monocytes # 0.4 K/mcL (0.0-1.3); Monocytes % 5.7 %; Platelet Count 297 K/mcL (140-400); Red Blood Count 4.02 M/mcL (3.82-4.97); Red Cell Distribution Width 13.5 % (11.5-14.5); Segmented Neutrophils % 53.8 %
[2017-09-16 05:54] LABS: Alanine Aminotransferase 11 Units/L (0-55); Albumin 2.7 g/dL (3.5-5.0); Albumin/Globulin Ratio 0.7 (1.1-2.2); Alkaline Phosphatase 71 Units/L (38-126); Aspartate Amino Transferase 11 Units/L (5-34); BUN/Creatinine Ratio 9 (6-26); Bilirubin,Total 0.3 mg/dL (0.2-1.2); Blood Urea Nitrogen 6 mg/dL (7-20); Calcium 8.5 mg/dL (8.6-10.8); Carbon Dioxide 19 mEq/L (19-29); Chloride 111 mEq/L (98-109); Globulin 3.7 g/dL (2.4-3.5); Glucose 93 mg/dL (70-99); Osmolality,Calculated 285 (280-300); Potassium 3.9 mEq/L (3.5-4.5); Sodium 139 mEq/L (136-145); Total Protein 6.4 g/dL (6.0-8.3); eGFR For African Americans > 60 (> 60); eGFR For Non-African Americans > 60 (> 60)
[2017-09-16 07:08] VITALS: BP 120/79
[2017-09-16] MEDS: Topiramate 25 MG TABLET PO SCH (08:16)
[2017-09-16] MEDS: lamoTRIgine 100 MG TABLET PO SCH (08:16)
[2017-09-16] MEDS: ALPRAZolam 1 MG TABLET PO SCH (08:16)
[2017-09-16] MEDS: Fluticasone Propionate Nasal 50 MCG/SPRAY BOTTLE NS SCH (08:17)
--- NOTE | 2017-09-16 09:41 | Neurology Progress Note ---
Date of Encounter: 09/16/17 Time of Encounter: 08:20 Assessment and Plan (1) Gait disturbance Current Visit: Yes Status: Resolved there is no evidence of any acute abnormality on the MRI of the brain repeat MRI with contrast also did not shows any abnormality. No evidence of any infection and particularly in the RISK LEAD at the same time no history of exam findings to be suggestive of any seizure at the moment neurologically she is intact and back to her baseline. No evidence of any infection on her spinal tap She also has multiple psychosomatic symptoms, baseline she did have an history of underlying anxiety depression and has been on multiple medication strongly suggest that she should be followed by psychiatry's from neurology standpoint she is okay to discharge to home (2) Chronic migraine without aura Current Visit: Yes Status: Acute Qualifiers: Status migrainosus presence: without status migrainosus Intractability: not intractable Qualified Code(s): G43.709 - Chronic migraine without aura, not intractable, without status migrainosus (3) Speech abnormality Current Visit: Yes Status: Resolved Qualifiers: Speech disturbance type: slurred speech Qualified Code(s): R47.81 - Slurred speech (4) Delayed emotional development Current Visit: Yes Status: Chronic (5) Dizziness Current Visit: Yes Status: Acute Subjective Interval history: stable NO new symptoms, repeat MRI is normal no abnormality reported after contrast Objective - Constitutional Vitals: Temp Pulse Resp BP Pulse Ox 97.6 F 80 17 120/79 99 09/16/17 07:08 09/16/17 07:08 09/16/17 07:08 09/16/17 07:08 09/16/17 07:08 - Neurological Exam Sensorimotor examination: Present: intact Motor Examination: Present: grossly full strength in all extremities Motor examination - left side: 5/5: deltoids, biceps, triceps, wrist flexion, wrist extension, hip flexors, ui software developer, quadriceps, tibialis Anterior, toe extension (EHL), plantarflexion Sensation intact: Present: intact Mental Status Examination: Present: awake, alert, oriented to person, oriented to place, oriented to time, follows commands appropriately, answers questions appropriately Cranial nerve examination: Present: PERRL, EOMI, visual obrien intact, corneal reflexes brisk symmetrically, sensory to face intact, mastication intact, no facial asymmetry is present, no dysarthria, hearing is intact symmetrically, soft palate elevates bilaterally upon phonation, gag reflex intact, flexes SCM and trapezius muscles symmetrically with full power, tongue protrudes midline, no atrophy or facial fasiculations present Cerebellar examination: Present: no dysmetria Results - Laboratory Findings CBC and BMP: 09/16/17 04:39 09/16/17 04:39 Abnormal lab findings: Abnormal lab results Hgb 10.8 g/dL (11.5-15.4) L 09/16/17 04:39 MCH 26.9 pg (28.0-33.3) L 09/16/17 04:39 MCHC 30.2 g/dL (31.6-35.5) L 09/16/17 04:39 Chloride 111 mEq/L (98-109) H 09/16/17 04:39 BUN 6 mg/dL (7-20) L 09/16/17 04:39 Calcium 8.5 mg/dL (8.6-10.8) L 09/16/17 04:39 C-Reactive Protein 25 mg/L (Less than 5) H 09/14/17 12:13 Albumin 2.7 g/dL (3.5-5.0) L 09/16/17 04:39 Globulin 3.7 g/dL (2.4-3.5) H 09/16/17 04:39 Albumin/Globulin Ratio 0.7 (1.1-2.2) L 09/16/17 04:39 LDL Cholesterol, Calc 107 mg/dL (0-99) H 09/15/17 03:15 HDL Cholesterol 38 mg/dL (40-59) L 09/15/17 03:15 Salicylates < 5.0 mg/dL (15-30) L 09/14/17 12:13 Acetaminophen < 1.0 mcg/mL (10-30) L 09/14/17 12:13 U Benzodiazepines Scrn Positive ng/mL (Hzbafq=954) H 09/14/17 12:35 Consult Discharge Plan - Plan Referrals: Alysa Estrella, RONA [Primary Care Provider] - 09/21/17 11:00 am
[2017-09-16] MEDS: Ondansetron 4 MG/2 ML VIAL IVP PRN (10:39)
--- NOTE | 2017-09-16 11:02 | Discharge Summary ---
Date of Encounter: 09/16/17 Time of Encounter: 10:15 - Discharge Diagnosis (1) Headache Priority: Primary Status: Chronic Comments: Patient reports headache for 3 days. Worse for the last 2 days. Patient has personal history of migraines and has been taking Topamax. She also has a familial history of migraines. Patient started her menses today, she is unable to answer whether there is any correlation between her headaches and menses. Patient had a fluoroscopic guided LP was negative. Brain MRI negative for acute infarct, mass, or hemorrhage. She has been seen by neurology, they have signed off and recommend that pt follow with psychiatry due to multiple psychosomatic symptoms and underlying anxiety and depression. Also suggest that gait and speech disturbances may be behavioral, discussed this with mom at bedside. Mom reports that speech and gait have both returned to normal. Patient states that she still has headache, however it is better than it was at its inception. Mom reports the patient has a history of sensory processing disorder. Mom states that patient reports that she is having pain, pain must be severe. Patient reports that she is not feeling well enough to go home, will continue to monitor patient overnight. If she is improved she will most likely discharge in the morning. MRI brain with contrast also negative, specifically no abnormal enhancement. Head CT 09/14/17 11:48 IMPRESSION: No acute intracranial abnormality. D/ / Campbell Cooper MD / Campbell Cooper MD Interpreting Provider: Campbell Cooper MD Lumbar Puncture Fluoroscopy 09/14/17 14:54 IMPRESSION: Successful fluoroscopic-guided lumbar puncture. D/ / 09/14/2017 17:50:02 Jacquelyn Grady MD / [email or web address] Interpreting Provider: Jacquelyn Grady MD Brain MRI 09/15/17 15:15 IMPRESSION: No acute abnormality. Specifically, there is no abnormal enhancement. D/ / Ezequiel Mendez / Ezequiel Mendez Interpreting Provider: Ezequiel Mendez Qualifiers: Headache type: unspecified Headache chronicity pattern: acute headache Intractability: not intractable Qualified Code(s): R51 - Headache (2) Gait disturbance Priority: Secondary Status: Resolved Comments: Patient and mother both report came disturbance for the last 3 days, with accompanied headache. They report the patient was shuffling and that this is abnormal for the patient. Imaging as above. Lumbar puncture as above. Mom reports that gait has returned to normal. The patient was evaluated by physical and occupational therapy. No acute PT/OT needs now or at discharge. Pt is ambulatory in the room, is back to baseline. (3) Speech abnormality Priority: Secondary Status: Resolved Comments: Patient's mother reports that her speech was slurred for the last 3 days. This morning, she states his speech is return to baseline. Per mother, patient is developmentally delayed and is sometimes difficult to see the changes, but her speech was abnormal at the time. Imaging as above. Patient has dysphasia screen 2. Speech therapy denies needs for the patient. Speech is clear and back to baseline. Qualifiers: Speech disturbance type: slurred speech Qualified Code(s): R47.81 - Slurred speech (4) Obesity Priority: Secondary Status: Acute Comments: Chronic. Implement lifestyle changes. Qualifiers: Obesity type: unspecified obesity type Obesity classification: adult class 2 (BMI 35 - 39.9) Serious obesity comorbidity presence: without serious comorbidity Body mass index: BMI 39.0-39.9 Qualified Code(s): E66.9 - Obesity, unspecified; Z68.39 - Body mass index (BMI) 39.0-39.9, adult; Z68.39 - Body mass index (BMI) 39.0-39.9, adult (5) DVT prophylaxis Priority: Secondary Status: Acute Comments: Pt is ambulatory. - Discharge Medications Prescriptions: Ondansetron ODT [Zofran ODT] 4 mg SL Q6HR PRN #12 tab.rapdis PRN Reason: Nausea Home Medications: ALPRAZolam [Xanax 1 MG Tablet] 1 mg PO TID 09/14/17 [History] Buspirone HCl [Buspar] 15 mg PO TID 09/14/17 [History] Ferrous Sulfate [Iron] 325 mg PO DAILY 09/14/17 [History] Fluticasone Propionate Nasal [Flonase] 2 spr NS DAILY 09/14/17 [History] Norethindrone-Ethinyl Estrad [Nortrel 7-7-7-28 Tablet] 1 tab PO DAILY 09/14/17 [ History] Omeprazole [PriLOSEC] 20 mg PO BIDAC 09/14/17 [History] Topiramate [Topamax] 50 mg PO DAILY 09/14/17 [History] lamoTRIgine [Lamictal] 100 mg PO DAILY 09/14/17 [History] Ondansetron ODT [Zofran ODT] 4 mg SL Q6HR PRN #12 tab.rapdis 09/16/17 [Rx] Allergies/Adverse Reactions: 3 Allergy/AdvReac Type Severity Reaction Status Date / Time No Known Allergies Allergy Verified 09/14/17 14:33 Procedures/tests Complete & Pending: Procedures Performed prior 72 hours Category Date Time Status MR head/brain w con [MR] Routine MRI 09/15/17 15:15 Completed MR head/brain wo con [MR] Routine MRI 09/14/17 16:00 Completed Date of admission: 09/14/17 14:48 Primary care physician: Alysa Estrella CNP Consults: 09/14/17 15:34 Consult to Occupational Therapy [CONS] Routine Comment: Evaluate, develop and implement POC Reason for Consult: Patient and mother report changes in ambulation and stability. Please assess for strength, stability, safety, ambulation, and possible assistive needs for post-discharge planning. 09/14/17 15:35 Consult to Physical Therapy [CONS] Routine Comment: Evaluate, develop and implement POC Reason for Consult: Patient and mother report changes in ambulation and stability. Please assess for strength, stability, safety, ambulation, and possible assistive needs for post-discharge planning. 09/14/17 16:03 Consult to Speech Therapy [CONS] Routine Comment: Evaluate, develop and implement POC Reason for Consult: Patient has minor slurring of speech. Pts. mother reports she is developmentally delayed but current speech is not her normal. Please assess for deficits. Call Completed: No Discharging clinician: Alysa Love Anticipated date of discharge: 09/16/17 - Patient Status Disposition: Home, Self-Care Condition: Fair Functional capacity at discharge: independent ambulation Overall status at discharge: patient is back to baseline - Discharge Instructions Follow Up With: Alysa Estrella CNP [Primary Care Provider] - 09/21/17 11:00 am Additional Instructions: Follow up with your primary care provider in the next 7-10 days and have them refer you to psychiatry for evaluation and treatment. Return to the ER as needed for any other problems or concerns or if your symptoms return or worsen. Resume your normal home medications Resume your normal diet and activities as tolerated. Follow up with PCP for evaluation of birthcontrol and headaches. - Diet and Activity Activity: increase activity as tolerated Diet: advance to your usual diet Interval History: Please see assessment and plan for hospital course. Hospital course: Ms. Velez is a 22 year old female - Time Spent with Patient Total time spent providing and/or coordinating discharge services: - Constitutional Vitals: Temp Pulse Resp BP Pulse Ox 97.6 F 80 17 120/79 99 09/16/17 07:08 09/16/17 07:08 09/16/17 07:08 09/16/17 07:08 09/16/17 07:08 General appearance: Present: cooperative, A&O X 3, pleasant, no acute distress, obese, answers questions appropriately - Head Head exam: Present: atraumatic, normal inspection, normocephalic - Eye Eye exam: Present: normal appearance, PERRL, conjuntiva pink, sclera anicteric Pupils: Present: PERRL - Neck Neck exam general surgery: Present: normal inspection, supple, trachea midline. Absent: lymphadenopathy, tenderness - Respiratory Respiratory exam: Present: CTAB. Absent: accessory muscle use, decreased breath sounds, rales, respiratory distress, rhonchi, wheezes - Cardiovascular Cardiovascular exam: Present: RRR, +S1, +S2. Absent: diastolic murmur, gallop, rubs, systolic murmur - GI/Abdominal GI/Abdominal exam: Present: hepatomegaly, normal bowel sounds, soft, no peritoneal signs. Absent: distended, tenderness - Extremities Exam Extremities exam: Present: normal capillary refill, warm, radial pulses palpable and symmetrical. Absent: calf tenderness, cyanotic, pedal edema, tenderness - Neurological Exam Neurological exam: Present: alert, oriented X3, no focal deficits. Absent: facial droop, speech deficit - Skin Skin exam: Present: dry, intact, normal color, warm. Absent: rash
== END 2017-09-16 12:25 | disposition home or self-care (01) ==
LOC: EMEROO 10:28 → 3BNU 10:28
PROVIDERS: ADMIT Pediatrics; ATTEND Registered Nurse

== ENCOUNTER 2019-10-29 19:44 | Inpatient (IN) ==
[2019-10-29] MEDS ORDERED: 0.9 % Sodium Chloride 1,000 ML IVC ONE ×2 (19:51→22:27)
[2019-10-29 20:56] LABS: Basophils # 0.1 K/mcL (0.0-0.2); Basophils % 0.5 %; Eosinophils # 0.1 K/mcL (0.0-0.6); Eosinophils % 0.7 %; Hematocrit 37.4 % (35.3-44.9); Hemoglobin 12.4 g/dL (11.5-15.4); Immature Granulocytes % 0.3 % (0-4); Lymphocytes # 1.8 K/mcL (0.6-4.6); Lymphocytes % 17.5 %; Mean Corpuscular HGB Conc 33.2 g/dL (31.6-35.5); Mean Corpuscular Hemoglobin 27.7 pg (28.0-33.3); Mean Corpuscular Volume 83.7 fL (83.0-100.0); Mean Platelet Volume 10.6 fL (9.4-12.4); Monocytes # 0.5 K/mcL (0.0-1.3); Monocytes % 5.1 %; Platelet Count 354 K/mcL (140-400); Red Blood Count 4.47 M/mcL (3.82-4.97); Red Cell Distribution Width 13.3 % (11.5-14.5); Segmented Neutrophils % 75.9 %; White Blood Count 10.5 K/mcL (4.3-11.1)
[2019-10-29 20:57] LABS: Bilirubin,Urine Negative (Negative); Blood,Urine Negative (Negative); Clarity,Urine Clear (Clear); Color,Urine Yellow (Yellow); Glucose,Urine (UA) Normal (Normal); Ketones,Urine Negative (Negative); Leukocyte Esterase,Urine Negative (Negative); Nitrite,Urine Negative (Negative); Protein,Urine Negative (Neg-Trace); Specific Gravity,Urine 1.023 (1.010-1.025); Urobilinogen,Urine Normal (Normal)
[2019-10-29 21:07] LABS: Amphetamine Screen,Urine Negative ng/mL (Cutoff=1000); Barbiturate Screen,Urine Negative ng/mL (Cutoff=200); Benzodiazepines Screen,Urine Negative ng/mL (Cutoff=200); Cannabinoid Screen,Urine Negative ng/mL (Cutoff = 50); Cocaine Screen,Urine Negative ng/mL (Cutoff= 300); Opiate Screen,Urine Negative ng/mL (Cutoff=300); Phencyclidine Screen,Urine Negative ng/mL (Cutoff=25)
[2019-10-29 21:25] LABS: Blood Urea Nitrogen 13 mg/dL (6-20); Carbon Dioxide 19 mEq/L (23-29); Chloride 104 mEq/L (98-107); Glucose 122 mg/dL (70-105); Osmolality,Calculated 289 (280-300); Sodium 139 mEq/L (136-145)
[2019-10-29 21:47] LABS: Acetaminophen < 10 mcg/mL (10-20); Alanine Aminotransferase 8 Units/L (7-52); Albumin 4.2 g/dL (3.5-5.7); Albumin/Globulin Ratio 1.4 (1.1-2.2); Alkaline Phosphatase 77 Units/L (34-104); Aspartate Amino Transferase 15 Units/L (13-39); BUN/Creatinine Ratio 22 (6-26); Bilirubin,Total 0.2 mg/dL (0.3-1.0); Calcium 8.9 mg/dL (8.6-10.3); Ethanol < 10 mg/dL (Less than 10); Globulin 2.9 g/dL (2.4-3.5); Salicylate < 2.5 mg/dL (15.0-30.0); Thyroid Stimulating Hormone 2.435 mcIU/mL (0.340-5.600); Total Protein 7.1 g/dL (6.4-8.9); eGFR For African Americans > 60 (> 60); eGFR For Non-African Americans > 60 (> 60)
[2019-10-29 22:14] LABS: ABG Base Excess 0 mEq/L (-2 to 3); ABG HCO3 25 mEq/L (21-27); ABG Oxygen Saturation 96 % (95-98); ABG PCO2 42 mmHg (35-45); ABG PH 7.39 pH Units (7.32-7.45); ABG PO2 86 mmHg (85-104); ABG TCO2 27 mEq/L (20-26)
[2019-10-30] MEDS ORDERED: Naloxone 0.4 MG/ML INJ IVP PRN ×2 (00:15→20:46)
[2019-10-30 02:27] LABS: Basophils % 0.3 %; Eosinophils % 0.3 %; Hematocrit 34.4 % (35.3-44.9); Hemoglobin 11.3 g/dL (11.5-15.4); Immature Granulocytes % 0.3 % (0-4); Lymphocytes # 1.6 K/mcL (0.6-4.6); Lymphocytes % 17.2 %; Mean Corpuscular HGB Conc 32.8 g/dL (31.6-35.5); Mean Corpuscular Volume 85.1 fL (83.0-100.0); Mean Platelet Volume 10.6 fL (9.4-12.4); Monocytes # 0.7 K/mcL (0.0-1.3); Monocytes % 6.8 %; Neutrophils # 7.2 K/mcL (1.6-8.9); Platelet Count 336 K/mcL (140-400); Red Blood Count 4.04 M/mcL (3.82-4.97); Red Cell Distribution Width 13.4 % (11.5-14.5); Segmented Neutrophils % 75.1 %; White Blood Count 9.6 K/mcL (4.3-11.1)
[2019-10-30 02:28] LABS: VBG HCO3 24 mEq/L (21-27); VBG PCO2 39 mmHg (41-51); VBG PH 7.41 pH Units (7.32-7.42); VBG PO2 143 mmHg (25-50)
[2019-10-30 02:47] LABS: BUN/Creatinine Ratio 20 (6-26); Blood Urea Nitrogen 10 mg/dL (6-20); Calcium 8.4 mg/dL (8.6-10.3); Carbon Dioxide 22 mEq/L (23-29); Chloride 113 mEq/L (98-107); Glucose 107 mg/dL (70-105); Osmolality,Calculated 296 (280-300); Potassium 3.7 mEq/L (3.5-5.1); Sodium 143 mEq/L (136-145); eGFR For African Americans > 60 (> 60); eGFR For Non-African Americans > 60 (> 60)
[2019-10-30] MEDS ORDERED: *HR* LORazepam 2 MG/ML VIAL IVP SCH (04:00)
[2019-10-30] MEDS ORDERED: 0.9 % Sodium Chloride 1,000 ML IVC SCH (04:45)
[2019-10-30] MEDS ORDERED: *HR* LORazepam 2 MG/ML VIAL IVP PRN ×3 (04:46→20:46)
[2019-10-30] MEDS: *HR* Heparin 5,000 UNIT/ML VIAL SQ SCH ×4 (05:26→22:42)
[2019-10-30 05:37] LABS: BUN/Creatinine Ratio 20 (6-26); Blood Urea Nitrogen 10 mg/dL (6-20); Calcium 8.2 mg/dL (8.6-10.3); Carbon Dioxide 19 mEq/L (23-29); Chloride 117 mEq/L (98-107); Glucose 98 mg/dL (70-105); Osmolality,Calculated 297 (280-300); Potassium 4.4 mEq/L (3.5-5.1); Sodium 144 mEq/L (136-145); eGFR For African Americans > 60 (> 60); eGFR For Non-African Americans > 60 (> 60)
[2019-10-30 07:29] LABS: Basophils % 0.5 %; Eosinophils % 0.5 %; Hematocrit 33.1 % (35.3-44.9); Immature Granulocytes % 0.8 % (0-4); Lymphocytes # 1.7 K/mcL (0.6-4.6); Lymphocytes % 20.4 %; Mean Corpuscular HGB Conc 33.2 g/dL (31.6-35.5); Mean Corpuscular Hemoglobin 27.8 pg (28.0-33.3); Mean Corpuscular Volume 83.6 fL (83.0-100.0); Mean Platelet Volume 11.4 fL (9.4-12.4); Monocytes # 0.7 K/mcL (0.0-1.3); Monocytes % 7.8 %; Platelet Count 268 K/mcL (140-400); Red Blood Count 3.96 M/mcL (3.82-4.97); Red Cell Distribution Width 13.5 % (11.5-14.5); White Blood Count 8.5 K/mcL (4.3-11.1)
[2019-10-30 16:17] LABS: Alanine Aminotransferase 7 Units/L (7-52); Albumin 3.7 g/dL (3.5-5.7); Albumin/Globulin Ratio 1.3 (1.1-2.2); Alkaline Phosphatase 68 Units/L (34-104); Aspartate Amino Transferase 11 Units/L (13-39); BUN/Creatinine Ratio 9 (6-26); Bilirubin,Total 0.2 mg/dL (0.3-1.0); Blood Urea Nitrogen 5 mg/dL (6-20); Calcium 8.4 mg/dL (8.6-10.3); Carbon Dioxide 22 mEq/L (23-29); Chloride 113 mEq/L (98-107); Globulin 2.8 g/dL (2.4-3.5); Glucose 107 mg/dL (70-105); Magnesium 2.2 mg/dL (1.6-2.6); Osmolality,Calculated 292 (280-300); Phosphorous 2.7 mg/dL (2.7-4.5); Potassium 3.5 mEq/L (3.5-5.1); Sodium 142 mEq/L (136-145); Total Protein 6.5 g/dL (6.4-8.9); eGFR For African Americans > 60 (> 60); eGFR For Non-African Americans > 60 (> 60)
[2019-10-31] MEDS: *HR* Heparin 5,000 UNIT/ML VIAL SQ SCH ×2 (06:00→18:25)
[2019-10-31 06:23] LABS: Alanine Aminotransferase 8 Units/L (7-52); Albumin 3.6 g/dL (3.5-5.7); Albumin/Globulin Ratio 1.4 (1.1-2.2); Alkaline Phosphatase 67 Units/L (34-104); Aspartate Amino Transferase 10 Units/L (13-39); BUN/Creatinine Ratio 10 (6-26); Bilirubin,Total 0.3 mg/dL (0.3-1.0); Blood Urea Nitrogen 6 mg/dL (6-20); Calcium 8.6 mg/dL (8.6-10.3); Carbon Dioxide 22 mEq/L (23-29); Chloride 109 mEq/L (98-107); Globulin 2.5 g/dL (2.4-3.5); Glucose 83 mg/dL (70-105); Magnesium 2.1 mg/dL (1.6-2.6); Osmolality,Calculated 289 (280-300); Phosphorous 3.1 mg/dL (2.7-4.5); Potassium 3.2 mEq/L (3.5-5.1); Sodium 141 mEq/L (136-145); Total Protein 6.1 g/dL (6.4-8.9); eGFR For African Americans > 60 (> 60); eGFR For Non-African Americans > 60 (> 60)
[2019-10-31] MEDS: Potassium Chloride Elixir 20 MEQ/15 ML UDC PO SCH ×2 (09:00→10:49)
[2019-10-31] MEDS ORDERED: 0.9 % Sodium Chloride 1,000 ML IVC ONE (17:15)
[2019-10-31] MEDS ORDERED: Isovue-370 500 ML BOTTLE IVP ONE (17:20)
[2019-10-31] MEDS ORDERED: *HR* Heparin 5,000 UNIT/ML VIAL IVP PRN ×2 (19:57)
[2019-10-31] MEDS ORDERED: *HR* Heparin 5,000 UNIT/ML VIAL IVP ONE (19:57)
[2019-10-31] MEDS ORDERED: Heparin 25,000 UNIT/250 ML D5W 25,000 UNIT/250 ML IV.SOLN IVC SCH (20:00)
[2019-10-31 20:57] LABS: Hematocrit 37.1 % (35.3-44.9); Hemoglobin 11.9 g/dL (11.5-15.4); Mean Corpuscular HGB Conc 32.1 g/dL (31.6-35.5); Mean Corpuscular Hemoglobin 27.7 pg (28.0-33.3); Mean Corpuscular Volume 86.5 fL (83.0-100.0); Mean Platelet Volume 10.7 fL (9.4-12.4); Platelet Count 387 K/mcL (140-400); Red Blood Count 4.29 M/mcL (3.82-4.97); Red Cell Distribution Width 13.8 % (11.5-14.5); White Blood Count 7.9 K/mcL (4.3-11.1)
[2019-10-31] MEDS ORDERED: Potassium Chloride Elixir 20 MEQ/15 ML UDC PO ONE (21:00)
[2019-10-31 21:29] LABS: Heparin anti-factor XA UFH 0.01 IU/mL (0.30-0.70)
[2019-10-31 21:30] LABS: Prothrombin Time 11.3 Seconds (9.4-12.1)
[2019-10-31 21:32] LABS: Activated Partial Thrombo Time 32.4 Seconds (26.0-36.0)
[2019-11-01 01:53] LABS: Nortriptyline 54 ng/mL (50-150)
[2019-11-01 05:45] LABS: Basophils % 0.6 %; Eosinophils # 0.2 K/mcL (0.0-0.6); Eosinophils % 2.4 %; Hematocrit 33.6 % (35.3-44.9); Hemoglobin 10.7 g/dL (11.5-15.4); Immature Granulocytes % 0.3 % (0-4); Mean Corpuscular HGB Conc 31.8 g/dL (31.6-35.5); Mean Corpuscular Hemoglobin 27.2 pg (28.0-33.3); Mean Corpuscular Volume 85.5 fL (83.0-100.0); Mean Platelet Volume 10.6 fL (9.4-12.4); Monocytes # 0.4 K/mcL (0.0-1.3); Monocytes % 5.8 %; Neutrophils # 2.6 K/mcL (1.6-8.9); Platelet Count 321 K/mcL (140-400); Red Blood Count 3.93 M/mcL (3.82-4.97); Red Cell Distribution Width 13.8 % (11.5-14.5); Segmented Neutrophils % 35.9 %; White Blood Count 7.2 K/mcL (4.3-11.1)
[2019-11-01 05:59] LABS: BUN/Creatinine Ratio 11 (6-26); Blood Urea Nitrogen 7 mg/dL (6-20); Calcium 8.5 mg/dL (8.6-10.3); Carbon Dioxide 24 mEq/L (23-29); Chloride 109 mEq/L (98-107); Glucose 93 mg/dL (70-105); Magnesium 2.1 mg/dL (1.6-2.6); Osmolality,Calculated 286 (280-300); Phosphorous 3.9 mg/dL (2.7-4.5); Potassium 3.7 mEq/L (3.5-5.1); Sodium 139 mEq/L (136-145); eGFR For African Americans > 60 (> 60); eGFR For Non-African Americans > 60 (> 60)
[2019-11-01] MEDS: *HR* Rivaroxaban 15 MG TABLET PO SCH ×2 (10:20→17:31)
[2019-11-01] MEDS: 0.9 % Sodium Chloride 1,000 ML IVC SCH ×2 (10:26→22:48)
[2019-11-01 12:41] LABS: Amitrip Nortriptyline Total 558 ng/mL (95-250)
[2019-11-01] MEDS ORDERED: Ibuprofen 600 MG TABLET PO PRN (13:23)
[2019-11-02 05:25] LABS: Basophils % 0.5 %; Eosinophils # 0.2 K/mcL (0.0-0.6); Eosinophils % 2.7 %; Hematocrit 33.6 % (35.3-44.9); Hemoglobin 10.8 g/dL (11.5-15.4); Immature Granulocytes % 0.2 % (0-4); Lymphocytes # 2.4 K/mcL (0.6-4.6); Lymphocytes % 43.7 %; Mean Corpuscular HGB Conc 32.1 g/dL (31.6-35.5); Mean Corpuscular Hemoglobin 27.5 pg (28.0-33.3); Mean Corpuscular Volume 85.5 fL (83.0-100.0); Mean Platelet Volume 10.3 fL (9.4-12.4); Monocytes # 0.3 K/mcL (0.0-1.3); Monocytes % 6.2 %; Neutrophils # 2.6 K/mcL (1.6-8.9); Platelet Count 299 K/mcL (140-400); Red Blood Count 3.93 M/mcL (3.82-4.97); Red Cell Distribution Width 13.6 % (11.5-14.5); Segmented Neutrophils % 46.7 %; White Blood Count 5.5 K/mcL (4.3-11.1)
[2019-11-02 05:43] LABS: BUN/Creatinine Ratio 14 (6-26); Blood Urea Nitrogen 10 mg/dL (6-20); Calcium 8.6 mg/dL (8.6-10.3); Carbon Dioxide 23 mEq/L (23-29); Chloride 107 mEq/L (98-107); Glucose 92 mg/dL (70-105); Osmolality,Calculated 289 (280-300); Phosphorous 4.5 mg/dL (2.7-4.5); Potassium 3.7 mEq/L (3.5-5.1); Sodium 140 mEq/L (136-145); eGFR For African Americans > 60 (> 60); eGFR For Non-African Americans > 60 (> 60)
[2019-11-02] MEDS: 0.9 % Sodium Chloride 1,000 ML IVC SCH (08:48)
[2019-11-02] MEDS: *HR* Rivaroxaban 15 MG TABLET PO SCH (10:23)
[2019-11-02 12:35] VITALS: BP 117/77
[2019-11-04 20:45] LABS: FACV Specimen WHOLE BLOOD
[2019-11-04 23:39] LABS: APTT (LE Anticoag) 57 sec (32-48); Diluted Russell VVT Confirm NEGATIVE ratio (Negative); Diluted Russell Viper Venom 67 sec (33-44); LE Coag APTT Mixing 45 sec (32-48); LE Dil. Russell Viper Mix 1:1 55 sec (33-44); LE Hexagonal Phospholipid Neut NEGATIVE (Negative); PT (LE-Anticoag) 15.9 sec (12.0-15.5); Thrombin Time 16.1 sec (14.7-19.5)
[2019-11-05 10:30] LABS: Fac V Leiden R506Q Mut Result NEGATIVE
== END 2019-11-02 15:15 | DRG 917 ==
LOC: ICNU 19:44 → EMEROOARM 19:44 → ICNU 10-30 → 2NENU 10-30 19:26
PROVIDERS: ADMIT Internal Medicine; ATTEND Pediatrics

== ENCOUNTER 2019-11-02 15:08 | Observation (INO) ==
[~2019-11-02 15:08] MED LIST: NON-FORMULARY MEDICATION 1 EACH EACH (Rivaroxaban [Xarelto] 20 MG) PO SCH
[2019-11-02] MEDS ORDERED: Acetaminophen 325 MG TABLET PO PRN (16:20)
[2019-11-02] MEDS ORDERED: *HR* LORazepam 1 MG TABLET PO PRN (16:20)
[2019-11-02] MEDS ORDERED: Haloperidol Lactate 5 MG/ML VIAL IM PRN (16:20)
[2019-11-02] MEDS ORDERED: hydrOXYzine pamoate 25 MG CAPSULE PO PRN (16:20)
[2019-11-02] MEDS ORDERED: MOM Conc 10 ML UD.LIQ PO PRN (16:20)
[2019-11-02] MEDS ORDERED: Mag Hydrox/Al Hydrox/Simeth 30 ML UDC PO PRN (16:20)
[2019-11-02] MEDS ORDERED: *HR* LORazepam 2 MG/ML VIAL IM PRN (16:20)
[2019-11-02] MEDS ORDERED: traZODone 50 MG TABLET PO PRN (16:42)
[2019-11-02] MEDS: *HR* Rivaroxaban 15 MG TABLET PO SCH (18:17)
[2019-11-02] MEDS: Gabapentin 300 MG CAPSULE PO SCH (21:26)
[2019-11-02] MEDS: traZODone 50 MG TABLET PO PRN (21:26)
[2019-11-02] MEDS: Topiramate 25 MG TABLET PO SCH (21:26)
[2019-11-03] MEDS: *HR* Rivaroxaban 15 MG TABLET PO SCH ×2 (06:29→18:19)
[2019-11-03] MEDS: Loratadine 10 MG TABLET PO SCH (10:38)
[2019-11-03] MEDS: Gabapentin 300 MG CAPSULE PO SCH ×3 (10:38→21:38)
[2019-11-03] MEDS: Topiramate 25 MG TABLET PO SCH ×2 (10:38→21:38)
[2019-11-03] MEDS: Fluticasone Propionate Nasal 50 MCG/SPRAY BOTTLE NS SCH (10:42)
[2019-11-03] MEDS: BuPROPion XL (24 HR) 150 MG TABLET PO SCH (11:15)
[2019-11-04] MEDS: *HR* Rivaroxaban 15 MG TABLET PO SCH ×2 (06:27→17:57)
[2019-11-04] MEDS: Topiramate 25 MG TABLET PO SCH ×2 (10:25→21:01)
[2019-11-04] MEDS: Loratadine 10 MG TABLET PO SCH (10:25)
[2019-11-04] MEDS: Fluticasone Propionate Nasal 50 MCG/SPRAY BOTTLE NS SCH (10:25)
[2019-11-04] MEDS: Gabapentin 300 MG CAPSULE PO SCH ×3 (10:25→21:01)
[2019-11-04] MEDS: BuPROPion XL (24 HR) 150 MG TABLET PO SCH (10:25)
[2019-11-04] MEDS: traZODone 50 MG TABLET PO PRN (21:01)
[2019-11-05] MEDS: *HR* Rivaroxaban 15 MG TABLET PO SCH ×2 (06:16→17:33)
[2019-11-05] MEDS: Topiramate 25 MG TABLET PO SCH ×2 (10:10→20:42)
[2019-11-05] MEDS: BuPROPion XL (24 HR) 150 MG TABLET PO SCH (10:11)
[2019-11-05] MEDS: Fluticasone Propionate Nasal 50 MCG/SPRAY BOTTLE NS SCH (10:12)
[2019-11-05] MEDS: Gabapentin 300 MG CAPSULE PO SCH ×3 (10:12→20:42)
[2019-11-05] MEDS: Loratadine 10 MG TABLET PO SCH (10:13)
[2019-11-05] MEDS: traZODone 50 MG TABLET PO PRN (20:42)
[2019-11-06] MEDS: *HR* Rivaroxaban 15 MG TABLET PO SCH ×2 (05:49→17:21)
[2019-11-06] MEDS: Topiramate 25 MG TABLET PO SCH ×2 (08:57→20:31)
[2019-11-06] MEDS: Fluticasone Propionate Nasal 50 MCG/SPRAY BOTTLE NS SCH (08:57)
[2019-11-06] MEDS: BuPROPion XL (24 HR) 150 MG TABLET PO SCH (08:58)
[2019-11-06] MEDS: Gabapentin 300 MG CAPSULE PO SCH ×3 (08:58→20:31)
[2019-11-06] MEDS: Loratadine 10 MG TABLET PO SCH (08:58)
[2019-11-06] MEDS: traZODone 50 MG TABLET PO PRN (20:31)
[2019-11-07] MEDS: *HR* Rivaroxaban 15 MG TABLET PO SCH (06:25)
[2019-11-07] MEDS: Gabapentin 300 MG CAPSULE PO SCH (08:53)
[2019-11-07] MEDS: Fluticasone Propionate Nasal 50 MCG/SPRAY BOTTLE NS SCH (08:53)
[2019-11-07] MEDS: BuPROPion XL (24 HR) 150 MG TABLET PO SCH (08:54)
[2019-11-07] MEDS: Loratadine 10 MG TABLET PO SCH (08:54)
[2019-11-07] MEDS: Topiramate 25 MG TABLET PO SCH (08:55)
[2019-11-07 09:12] VITALS: BP 103/67
== END 2019-11-07 13:30 | disposition home or self-care (01) ==
LOC: INTOOBSV 15:08 → 1ANU 15:08
PROVIDERS: ADMIT Psychiatry & Neurology Psychiatry; ATTEND Psychiatry & Neurology Psychiatry

== ENCOUNTER 2019-12-06 17:37 | Inpatient (IN) ==
[2019-12-06 18:26] LABS: Bilirubin,Urine Negative (Negative); Blood,Urine Large (Negative); Clarity,Urine Cloudy (Clear); Color,Urine Red (Yellow); Glucose,Urine (UA) Normal (Normal); Ketones,Urine Negative (Negative); Leukocyte Esterase,Urine Small (Negative); Nitrite,Urine Negative (Negative); PH,Urine 5.5 pH Units (5.0-8.0); Protein,Urine 30 mg/dL (Neg-Trace); Specific Gravity,Urine 1.021 (1.010-1.025); Urobilinogen,Urine Normal (Normal)
[2019-12-06 18:30] LABS: Bacteria,Urine None Seen per hpf (None-Few); Hyaline Casts,Urine None Seen per lpf (None-Few); RBC,Urine TNTC per hpf (0-3); Squamous Epithelial Cell,Urine Many per lpf (None-Few); WBC,Urine 0-3 per hpf (0-3)
[2019-12-06 18:33] LABS: Amphetamine Screen,Urine Negative ng/mL (Cutoff=1000); Barbiturate Screen,Urine Negative ng/mL (Cutoff=200); Benzodiazepines Screen,Urine Negative ng/mL (Cutoff=200); Cannabinoid Screen,Urine Negative ng/mL (Cutoff = 50); Cocaine Screen,Urine Negative ng/mL (Cutoff= 300); Opiate Screen,Urine Negative ng/mL (Cutoff=300); Phencyclidine Screen,Urine Negative ng/mL (Cutoff=25)
[2019-12-06 18:33] LABS: Basophils # 0.1 K/mcL (0.0-0.2); Basophils % 0.7 %; Eosinophils # 0.2 K/mcL (0.0-0.6); Eosinophils % 2.5 %; Hematocrit 34.5 % (35.3-44.9); Hemoglobin 11.2 g/dL (11.5-15.4); Immature Granulocytes % 0.2 % (0-4); Lymphocytes # 2.9 K/mcL (0.6-4.6); Mean Corpuscular HGB Conc 32.5 g/dL (31.6-35.5); Mean Corpuscular Hemoglobin 27.4 pg (28.0-33.3); Mean Corpuscular Volume 84.4 fL (83.0-100.0); Mean Platelet Volume 10.3 fL (9.4-12.4); Monocytes # 0.5 K/mcL (0.0-1.3); Monocytes % 5.5 %; Neutrophils # 4.6 K/mcL (1.6-8.9); Platelet Count 402 K/mcL (140-400); Red Blood Count 4.09 M/mcL (3.82-4.97); Red Cell Distribution Width 13.8 % (11.5-14.5); Segmented Neutrophils % 56.1 %; White Blood Count 8.2 K/mcL (4.3-11.1)
[2019-12-06 18:52] LABS: Acetaminophen < 10 mcg/mL (10-20); BUN/Creatinine Ratio 15 (6-26); Blood Urea Nitrogen 9 mg/dL (6-20); Calcium 9.1 mg/dL (8.6-10.3); Carbon Dioxide 23 mEq/L (23-29); Chloride 105 mEq/L (98-107); Ethanol < 10 mg/dL (Less than 10); Glucose 90 mg/dL (70-105); Osmolality,Calculated 286 (280-300); Potassium 4.1 mEq/L (3.5-5.1); Salicylate < 2.5 mg/dL (15.0-30.0); Sodium 139 mEq/L (136-145); eGFR For African Americans > 60 (> 60); eGFR For Non-African Americans > 60 (> 60)
[2019-12-06] MEDS ORDERED: Haloperidol Lactate 5 MG/ML VIAL IM PRN (21:50)
[2019-12-06] MEDS ORDERED: MOM Conc 10 ML UD.LIQ PO PRN (21:50)
[2019-12-06] MEDS ORDERED: *HR* LORazepam 2 MG/ML VIAL IM PRN (21:50)
[2019-12-07] MEDS: Loratadine 10 MG TABLET PO SCH (10:35)
[2019-12-07] MEDS: *HR* Rivaroxaban 10 MG TABLET PO SCH (10:35)
[2019-12-07] MEDS: Gabapentin 300 MG CAPSULE PO SCH ×3 (10:35→20:32)
[2019-12-07] MEDS: Topiramate 25 MG TABLET PO SCH ×2 (10:35→20:33)
[2019-12-07] MEDS: BuPROPion XL (24 HR) 150 MG TABLET PO SCH (10:35)
[2019-12-07] MEDS: Fluticasone Propionate Nasal 50 MCG/SPRAY BOTTLE NS SCH (12:25)
[2019-12-07] MEDS: hydrOXYzine pamoate 25 MG CAPSULE PO PRN (20:32)
[2019-12-07] MEDS: traZODone 50 MG TABLET PO PRN (20:33)
[2019-12-08] MEDS: Topiramate 25 MG TABLET PO SCH ×2 (08:56→20:14)
[2019-12-08] MEDS: Gabapentin 300 MG CAPSULE PO SCH ×3 (08:56→20:15)
[2019-12-08] MEDS: *HR* Rivaroxaban 10 MG TABLET PO SCH (08:57)
[2019-12-08] MEDS: BuPROPion XL (24 HR) 150 MG TABLET PO SCH (08:57)
[2019-12-08] MEDS: Loratadine 10 MG TABLET PO SCH (08:57)
[2019-12-08] MEDS: Fluticasone Propionate Nasal 50 MCG/SPRAY BOTTLE NS SCH (08:58)
[2019-12-08] MEDS: hydrOXYzine pamoate 25 MG CAPSULE PO PRN ×2 (13:26→19:46)
[2019-12-08] MEDS: traZODone 50 MG TABLET PO PRN (20:15)
[2019-12-09] MEDS: Acetaminophen 325 MG TABLET PO PRN (07:54)
[2019-12-09] MEDS: Loratadine 10 MG TABLET PO SCH (08:34)
[2019-12-09] MEDS: Topiramate 25 MG TABLET PO SCH ×2 (08:35→21:39)
[2019-12-09] MEDS: Gabapentin 300 MG CAPSULE PO SCH ×3 (08:35→21:39)
[2019-12-09] MEDS: BuPROPion XL (24 HR) 150 MG TABLET PO SCH (08:35)
[2019-12-09] MEDS: *HR* Rivaroxaban 10 MG TABLET PO SCH (08:35)
[2019-12-09] MEDS: Fluticasone Propionate Nasal 50 MCG/SPRAY BOTTLE NS SCH (08:36)
[2019-12-09] MEDS: hydrOXYzine pamoate 25 MG CAPSULE PO PRN (12:49)
[2019-12-09] MEDS: Mag Hydrox/Al Hydrox/Simeth 30 ML UDC PO PRN (21:40)
[2019-12-10] MEDS: *HR* Rivaroxaban 10 MG TABLET PO SCH (08:26)
[2019-12-10] MEDS: Topiramate 25 MG TABLET PO SCH ×2 (08:26→20:46)
[2019-12-10] MEDS: Loratadine 10 MG TABLET PO SCH (08:26)
[2019-12-10] MEDS: BuPROPion XL (24 HR) 150 MG TABLET PO SCH (08:26)
[2019-12-10] MEDS: Gabapentin 300 MG CAPSULE PO SCH ×3 (08:26→20:43)
[2019-12-10] MEDS: Fluticasone Propionate Nasal 50 MCG/SPRAY BOTTLE NS SCH (08:38)
[2019-12-10] MEDS: hydrOXYzine pamoate 25 MG CAPSULE PO PRN (12:35)
[2019-12-10] MEDS: Mag Hydrox/Al Hydrox/Simeth 30 ML UDC PO PRN (14:00)
[2019-12-10] MEDS: *HR* LORazepam 1 MG TABLET PO PRN (14:04)
[2019-12-11] MEDS: Acetaminophen 325 MG TABLET PO PRN (04:23)
[2019-12-11] MEDS: BuPROPion XL (24 HR) 150 MG TABLET PO SCH (08:06)
[2019-12-11] MEDS: Gabapentin 300 MG CAPSULE PO SCH ×3 (08:08→21:35)
[2019-12-11] MEDS: *HR* Rivaroxaban 10 MG TABLET PO SCH (08:08)
[2019-12-11] MEDS: Loratadine 10 MG TABLET PO SCH (08:08)
[2019-12-11] MEDS: Topiramate 25 MG TABLET PO SCH ×2 (08:11→21:35)
[2019-12-11] MEDS: Fluticasone Propionate Nasal 50 MCG/SPRAY BOTTLE NS SCH (08:16)
[2019-12-11] MEDS: Mag Hydrox/Al Hydrox/Simeth 30 ML UDC PO PRN ×2 (09:25→13:39)
[2019-12-11] MEDS: *HR* LORazepam 1 MG TABLET PO PRN (17:22)
[2019-12-11] MEDS: hydrOXYzine pamoate 25 MG CAPSULE PO PRN (21:35)
[2019-12-12] MEDS: Gabapentin 300 MG CAPSULE PO SCH ×3 (08:12→20:02)
[2019-12-12] MEDS: Topiramate 25 MG TABLET PO SCH ×2 (08:12→20:02)
[2019-12-12] MEDS: BuPROPion XL (24 HR) 150 MG TABLET PO SCH (08:12)
[2019-12-12] MEDS: Loratadine 10 MG TABLET PO SCH (08:13)
[2019-12-12] MEDS: *HR* Rivaroxaban 10 MG TABLET PO SCH (08:13)
[2019-12-12] MEDS: Fluticasone Propionate Nasal 50 MCG/SPRAY BOTTLE NS SCH (08:15)
[2019-12-12] MEDS: Mag Hydrox/Al Hydrox/Simeth 30 ML UDC PO PRN (08:44)
[2019-12-12] MEDS: Acetaminophen 325 MG TABLET PO PRN (14:19)
[2019-12-12] MEDS: hydrOXYzine pamoate 25 MG CAPSULE PO PRN (19:09)
[2019-12-12] MEDS: *HR* LORazepam 1 MG TABLET PO PRN (19:21)
[2019-12-13] MEDS: BuPROPion XL (24 HR) 150 MG TABLET PO SCH (08:43)
[2019-12-13] MEDS: Gabapentin 300 MG CAPSULE PO SCH (08:44)
[2019-12-13] MEDS: Loratadine 10 MG TABLET PO SCH (08:44)
[2019-12-13] MEDS: Topiramate 25 MG TABLET PO SCH (08:44)
[2019-12-13] MEDS: *HR* Rivaroxaban 10 MG TABLET PO SCH (08:47)
[2019-12-13] MEDS: Fluticasone Propionate Nasal 50 MCG/SPRAY BOTTLE NS SCH (09:01)
[2019-12-13 09:15] VITALS: BP 97/66
== END 2019-12-13 12:05 | disposition home or self-care (01) | DRG 885 ==
LOC: EMEROOARM 17:37 → 1ANU 21:25 → INTOOBSV 21:25
PROVIDERS: ADMIT Psychiatry & Neurology Psychiatry; ATTEND Psychiatry & Neurology Psychiatry